=== PATIENT | female | born 1955 | race Caucasian/White ===

== ENCOUNTER 2023-01-20 10:02 | Outpatient (REF) | payer OTHER, MEDICAID, SELFPAY ==
[2023-01-21 09:36] LABS: BV Int Neg Control Negative (Negative); BV Int Pos Control Positive (Positive)
== END 2023-01-20 10:03 | disposition home or self-care (01) ==
LOC: HO.LAB 10:02
PROVIDERS: PCP Internal Medicine Endocrinology, Diabetes & Metabolism; Visit Provider Advanced Practice Midwife
DX: R10.2 Pelvic and perineal pain (principal); N90.89 Other specified noninflammatory disorders of vulva and perineum; N89.8 Other specified noninflammatory disorders of vagina
CPT/HCPCS: 81003; 87480; 87510; 87660

== ENCOUNTER → 2023-05-28 19:00 | Outpatient (BNV) | payer OTHER, MEDICAID, SELFPAY | PROVIDERS: PCP Internal Medicine; Visit Provider Psychiatry & Neurology Neurology | DX: G47.33 Obstructive sleep apnea (adult) (pediatric) (principal) | CPT/HCPCS: 95810 ==

== ENCOUNTER → 2023-05-28 19:30 | Outpatient (REF) | payer OTHER, MEDICAID, SELFPAY | LOC: HO.SL 19:30 | PROVIDERS: PCP Internal Medicine; Visit Provider Registered Nurse | DX: G47.33 Obstructive sleep apnea (adult) (pediatric) (principal) | CPT/HCPCS: 95810 ==